=== PATIENT | female | born 1995 | race African-American/Black ===

== ENCOUNTER 2022-11-13 08:21 | Observation (INO) ==
[2022-11-13 08:37] VITALS: BMI 41.0
[2022-11-13 09:15] LABS: BASOPHILS % (AUTO) 0.3 % (0.2-1.0); EOSINOPHILS # (AUTO) 0.2 x10^3/uL (0.0-0.2); EOSINOPHILS % (AUTO) 2.6 % (0.9-2.9); HEMATOCRIT 41.4 % (36.0-47.0); LYMPHOCYTES # (AUTO) 1.8 X10^3/uL (1.3-2.9); LYMPHOCYTES % (AUTO) 22.4 % (21.0-51.0); MEAN CORPUSCULAR HEMOGLOBIN 29.6 pg (27.0-34.0); MEAN CORPUSCULAR HGB CONC 33.9 g/dL (33.0-35.0); MEAN CORPUSCULAR VOLUME 87.2 fL (80.0-100.0); MONOCYTES # (AUTO) 0.6 x10^3/uL (0.3-0.8); MONOCYTES % (AUTO) 7.4 % (0.0-13.0); NEUTROPHILS # (AUTO) 5.4 x10^3/uL (2.2-4.8); NEUTROPHILS % (AUTO) 67.3 % (42.0-75.0); RED BLOOD COUNT 4.75 X10^6/uL (3.5-5.4); WHITE BLOOD COUNT 8.1 X10^3/uL (3.6-10.0)
[2022-11-13 09:27] LABS: ALANINE AMINOTRANSFERASE 15 Units/L (12-78); ALBUMIN 3.5 g/dL (3.4-5.0); ALKALINE PHOSPHATASE 43 Units/L (46-116); ASPARTATE AMINO TRANSFERASE 16 Units/L (15-37); BLOOD UREA NITROGEN 12 mg/dL (7-18); CALCIUM 8.7 mg/dL (8.5-10.1); CARBON DIOXIDE 27.2 mmol/L (21-32); CHLORIDE 103 mmol/L (98-107); CREATININE 0.91 mg/dL (0.55-1.02); SODIUM 139 mmol/L (136-145); TOTAL PROTEIN 7.2 g/dL (6.4-8.2); eGFR NON BLACK RACES > 60 (>60)
--- NOTE | 2022-11-13 09:34 | DR.NAUSEAF ---
HPI Time Seen Time Seen by Provider: 11/13/22 08:50 Primary Care Physician Primary Care Physician: Cj HPI Comment HPI Comment: PATIENT IS 27YR OLD FEMALE IN ER WITH PERSISTENT NAUSEA SINCE SUNDAY. EVALUATEDBY PCP, DID LABS THAT WERE NORMAL. EVALUATED IN ER THIS PAST SUNDAY. CT ABDOMEN AND PELVIS AND LABS WERE NORMAL. HER SYMPTOMS ARE GETTING WO RSE. ZOFRAN NOT HELPING. HAVE LOW GRADE FEVER. Complaints Chief Complaint Doctors Comments: PERSISTENT NAUSEA TIMES 5 DAYS. Chief Complaint:: Nausea since Sunday, denies vomiting or fever. Seen Dr Cui in ED on Sunday and received protonix, zofran, toradol. She states the Zofran helps for about 10-15 minutes. Self Treatment fo Chief Complaint: Zofran, Toradol, Ibuprofen, Tramadol COVID-19 Coronavirus risk:travel/contact w/high risk person: No Has patient experienced Coronavirus symptoms: No Reviewed Nurses Notes Reviewed: Yes Source History Provided: Patient Mode of Arrival Mode of Arrival: Ambulatory Timing Onset of Chief Complaint: 11/07/22 PMH PMH Past Medical History: No Past Surgical History: No Surgical History: No History Family History History of Family Medical Conditions: Yes Family Medical History: Diabetes Mellitus, Cancer and Hypertension Social History Does patient currently use any type of tobacco product: No Have you used tobacco products in the last 12 months: No Type of Tobacco Use: None Does any household member use tobacco: No Alcohol Use: None Do you use any recreational Drugs:: No Lives With: Family Lives Where: Home Travel Risk Coronavirus risk:travel/contact w/high risk person: No Has patient experienced Coronavirus symptoms: No Infectious screening In the last 2 months have you had wt loss of >10#?: NO Have you had fever, night sweats or hemotysis?: No Have you traveled outside the country in the last 6 months?: No Isolation: Standard ROS Review of Systems Constitutional: No Symptoms Reported; negative Fever Eyes: No Symptoms Reported ENTM: No Symptoms Reported; negative Ear Pain, Nose Discharge, Nose Congestion or Throat Pain Respiratoy: No Symptoms Reported; negative Moist Cough, Short of Breath or Wheezing Cardiovascular: No Symptoms Reported; negative Chest Pain Gastrointestinal/Abdominal: Nausea; negative Abdominal Pain, Diarrhea or Vomiting Genitourinary: No Symptoms Reported; negative Dysuria Neurological: negative Headache, Weakness or Dizziness Musculoskeletal: Back Pain (LOWER BACK PAIN ); negative Muscle Pain Integumentary: No Symptoms Reported; negative Rash or Juandice Hematologic/Lymphatic: No Symptoms Reported; negative Easy Bruising or Swollen Glands Endocrine: No Symptoms Reported; negative Increased Thirst or Increased Urine Psychiatric: No Symptoms Reported and See HPI All Other Systems: Reviewed and Negative PE Vital Signs Vitals: Temperature 97.8 F Pulse Rate 104 Respiratory Rate 18 Blood Pressure [Left Arm] 124/74 Blood Pressure 116/65 O2 Sat by Pulse Oximetry 96 General Limitations: No Limitations General Appearance: Alert and In No Apparent Distress Head Head Exam: Normal Inspection and Atraumatic Eyes Eye exam: Normal Appearance and PERRL; negative Scleral Icterus or Conjunctival Injection ENT ENT Exam: Normal Exam, Normal Oropharynx, Normal External Ear Exam and TM's Normal Bilaterally Neck Neck Exam: Normal Inspection and Trachea Midline; negative Tenderness Chest Chest Inspection: Normal Inspection and Symmetric Chest Wall Rise; negative Tenderness Respiratory Respiratory Exam: Normal Lung Sounds Bilat; negative Accessory Muscle Use, Chest Wall Tenderness or Respiratory Distress Respiratory Exam: Bilateral: Clear to Auscultation Cardiovascular Cardiovascular Exam: Regular Rate, Normal Rhythm, Normal Heart Sounds, Systolic Murmur and Diastolic Murmur Abdominal Exam Abdominal Exam: Normal Inspection, Normal Bowel Sounds and Soft; negative Tenderness Rectal Rectal Exam: Deferred External Exam: Female: Deferred : Speculum Exam (Female): Deferred : Bimanual Exam (female): Deferred Extremities Extremities Exam: Normal Inspection and Normal Capillary Refill Back Back Exam: Normal Inspection; negative (R) CVA Tenderness or (L) CVA Tenderness Neurologic Neurological Exam: Alert and Oriented X3; negative Motor Sensory Deficit Psychiatric Psychiatric Exam: Normal Affect and Normal Mood Skin Skin Exam: Intact MDM Differential Diagnosis Differential Diagnosis: Considerations may Include:: Bowel Obstruction, Cholecystitis, Gastritis, Inflammatory BD, Pancreatitis, PUD, Urinary Tract Infection and Urolithiasis COURSE Treatment Treatment: SE ORDERS DONE WHILE PATIENT WAS IN ER. LABS DISCUSSED WITH PATIENT. SURGICAL CONSULT WITH DR. FELIPE. HE WILL TAKE PATIENT TO SURGERY FOR CHOLECYSTECTOMY. Consultation Consultation Comments: DISCUSSED PATIENT WITH DR. FELIPE. HE IS IN ER EVALUATING PATIENT AND WILL TAKE PATIENT TO SURGERY. Education/Counseling Education/Counseling: Patient Educated On: Diagnosis ROR Labs Reviewed Laboratory Results Reviewed?: Yes Result Diagrams: 11/14/22 05:13 11/14/22 05:13 Laboratory: WBC 8.1 X10^3/uL (3.6-10.0) 11/13/22 09:00 RBC 4.75 X10^6/uL (3.5-5.4) 11/13/22 09:00 Hgb 14.0 g/dL (12.0-16.0) 11/13/22 09:00 Hct 41.4 % (36.0-47.0) 11/13/22 09:00 MCV 87.2 fL (80.0-100.0) 11/13/22 09:00 MCH 29.6 pg (27.0-34.0) 11/13/22 09:00 MCHC 33.9 g/dL (33.0-35.0) 11/13/22 09:00 RDW 13.0 % (11.6-16.5) 11/13/22 09:00 Plt Count 255 X10^3/uL (150.0-450.0) 11/13/22 09:00 MPV 8.0 fL (7.4-11.0) 11/13/22 09:00 Neut % (Auto) 67.3 % (42.0-75.0) 11/13/22 09:00 Lymph % (Auto) 22.4 % (21.0-51.0) 11/13/22 09:00 [place] % (Auto) 7.4 % (0.0-13.0) 11/13/22 09:00 Eos % (Auto) 2.6 % (0.9-2.9) 11/13/22 09:00 Baso % (Auto) 0.3 % (0.2-1.0) 11/13/22 09:00 Neut # (Auto) 5.4 x10^3/uL (2.2-4.8) H 11/13/22 09:00 Lymph # (Auto) 1.8 X10^3/uL (1.3-2.9) 11/13/22 09:00 [place] # (Auto) 0.6 x10^3/uL (0.3-0.8) 11/13/22 09:00 Eos # (Auto) 0.2 x10^3/uL (0.0-0.2) 11/13/22 09:00 Baso # (Auto) 0.0 X10^3/uL (0.0-0.1) 11/13/22 09:00 Absolute Nucleated RBC 0.0 /100WBC 11/13/22 09:00 Sodium 139 mmol/L (136-145) 11/13/22 09:00 Corrected Sodium TNP 11/13/22 09:00 Potassium 3.9 mmol/L (3.5-5.1) 11/13/22 09:00 Chloride 103 mmol/L (98-107) 11/13/22 09:00 Carbon Dioxide 27.2 mmol/L (21-32) 11/13/22 09:00 BUN 12 mg/dL (7-18) 11/13/22 09:00 Creatinine 0.91 mg/dL (0.55-1.02) 11/13/22 09:00 Est GFR (MDRD) Af Amer > 60 (>60) 11/13/22 09:00 Est GFR (MDRD) Non-Af > 60 (>60) 11/13/22 09:00 Glucose 87 mg/dL (65-99) 11/13/22 09:00 Calcium 8.7 mg/dL (8.5-10.1) 11/13/22 09:00 Corrected Calcium TNP 11/13/22 09:00 Total Bilirubin 0.60 mg/dL (0.2-1.0) 11/13/22 09:00 AST 16 Units/L (15-37) 11/13/22 09:00 ALT 15 Units/L (12-78) 11/13/22 09:00 Alkaline Phosphatase 43 Units/L (46-116) L 11/13/22 09:00 Total Protein 7.2 g/dL (6.4-8.2) 11/13/22 09:00 Albumin 3.5 g/dL (3.4-5.0) 11/13/22 09:00 Globulin 3.7 g/dL (2.5-4.5) 11/13/22 09:00 Albumin/Globulin Ratio 0.9 Ratio (1.1-2.1) L 11/13/22 09:00 SARS-CoV-2 (PCR) Negative (NEGATIVE) 11/13/22 08:57 Influenza Type A (PCR) Negative (NEGATIVE) 11/13/22 08:57 Influenza Type B (PCR) Negative (NEGATIVE) 11/13/22 08:57 RSV (PCR) Negative (NEGATIVE) 11/13/22 08:57 Tissue Pathology To follow 11/13/22 14:19 XRAY XRAY Interpreted by: Radiologist (GB US REPORT NOTED.) Opioid Opioid Risk Tool Age (Juanjo box if 16-45): No History of Preadolescent Sexual Abuse: No Total: 0 Total Score Risk Category: Low Risk Copyright: Ammon PATTON predicting aberrant behaviors Discharge Plan Diagnosis Discharge Problem: Acute cholecystitis due to biliary calculus, Abdominal pain Discharge Plan Patient Disposition: 09 ADMITTED INPATIENT Condition: Stable Orders to Discharge Patient Discharge Orders: Discharge (Routine); Ordered 11/14/22 Ordered By: EUN FELIPE
--- NOTE | 2022-11-13 09:44 | US ---
HISTORYNauseaSTUDYGallbladder sonogramTechnique: Multiple grayscale sonographic images were obtained.COMPARISONNoneFINDINGSThe liver is normal in size and configuration and without cyst, mass, or biliary ductal dilatation. Portal blood flow was hepatopetal, hepatic venous blood flow, hepatofugal, hepatic artery, patent. Multiple gallstones are present within the gallbladder. Gallbladder wall thickness was normal. Common duct measured 2.1 mm. The head and body of the pancreas appear normal. The tail was obscured by overlying bowel gas. Right kidney measured 9.5 cm in length. No solid masses, hydronephrosis, stones, or perinephric fluid collections were identified.IMPRESSIONCholelithiasis without evidence for cholecystitisElectronically signed by: RAMIN DELEON (Nov 13, 2022 09:42:54)
[2022-11-13] MEDS ORDERED: D5 1/2 NS 1,000 ML 1,000 ML IV ONE (11:06)
[2022-11-13] MEDS ORDERED: ANCEF VIAL 1 GRAM ONE ×2 (11:06→13:03)
[2022-11-13] MEDS ORDERED: NS 100 ML IV 100 ML ONE ×2 (11:06→13:04)
[2022-11-13] MEDS ORDERED: ANCEF VIAL 1 GRAM IVP ONE (11:25)
[2022-11-13] MEDS ORDERED: D5 1/2 NS 1,000 ML 1,000 ML IV SCH (12:00)
[2022-11-13] MEDS ORDERED: FENTANYL VIAL INJ 100 mcg ONE ×2 (12:31→13:30)
[2022-11-13] MEDS ORDERED: VERSED ONE (12:31)
[2022-11-13] MEDS ORDERED: DIPRIVAN VIAL 20 ML ONE (12:32)
[2022-11-13] MEDS ORDERED: TORADOL 30 MG VIAL ONE (12:32)
[2022-11-13] MEDS ORDERED: XYLOCAINE 2 % (PLAIN) ONE (12:32)
[2022-11-13] MEDS ORDERED: ZOFRAN INJ 4 MG VIAL ONE (12:32)
[2022-11-13] MEDS ORDERED: BRIDION ONE (12:32)
[2022-11-13] MEDS ORDERED: ZEMURON 100 MG VIAL ONE (12:32)
[2022-11-13] MEDS ORDERED: OFIRMEV IV 1000 MG VIAL 1,000 MG/100 ML VIAL IV ONE (12:32)
[2022-11-13] MEDS ORDERED: REGLAN INJ 10 MG VIAL ONE (12:42)
[2022-11-13] MEDS ORDERED: PEPCID 20 MG VIAL ONE (12:43)
[2022-11-13] MEDS ORDERED: ZOFRAN INJ 4 MG VIAL IVP PRN ×2 (13:02→15:26)
[2022-11-13] MEDS ORDERED: BENADRYL INJ 50 MG VIAL IVP PRN (13:02)
[2022-11-13] MEDS ORDERED: BARHEMSYS INJ IVP PRN (13:02)
[2022-11-13] MEDS ORDERED: LR 1,000 ML IV 1,000 ML IV ONE (13:03)
[2022-11-13] MEDS ORDERED: BACTROBAN TOPICAL OINT ONE (13:03)
[2022-11-13] MEDS ORDERED: KETAMINE 50 MG/5 ML-NACL SYRNG ONE (13:17)
[2022-11-13] MEDS ORDERED: SUPRANE ONE (13:20)
[2022-11-13] MEDS ORDERED: BREVIBLOC ONE (13:36)
[2022-11-13] MEDS ORDERED: EPHEDRINE SULFATE INJ ONE (13:48)
[2022-11-13] MEDS ORDERED: DILAUDID INJ ONE (14:59)
[2022-11-13] MEDS: DILAUDID INJ IVP PRN ×6 (15:00→22:32)
[2022-11-13] MEDS: D5 1/2 NS 1,000 ML 1,000 ML IV SCH ×2 (17:02→23:30)
[2022-11-14] MEDS: DILAUDID INJ IVP PRN (03:33)
[2022-11-14] MEDS: D5 1/2 NS 1,000 ML 1,000 ML IV SCH ×2 (04:48→05:24)
[2022-11-14 05:39] LABS: BASOPHILS # (AUTO) 0.1 X10^3/uL (0.0-0.1); BASOPHILS % (AUTO) 0.6 % (0.2-1.0); EOSINOPHILS # (AUTO) 0.2 x10^3/uL (0.0-0.2); EOSINOPHILS % (AUTO) 1.8 % (0.9-2.9); HEMATOCRIT 36.2 % (36.0-47.0); HEMOGLOBIN 12.3 g/dL (12.0-16.0); LYMPHOCYTES % (AUTO) 19.5 % (21.0-51.0); MEAN CORPUSCULAR HEMOGLOBIN 29.9 pg (27.0-34.0); MEAN PLATELET VOLUME 8.2 fL (7.4-11.0); MONOCYTES # (AUTO) 0.7 x10^3/uL (0.3-0.8); MONOCYTES % (AUTO) 6.7 % (0.0-13.0); NEUTROPHILS # (AUTO) 7.2 x10^3/uL (2.2-4.8); NEUTROPHILS % (AUTO) 71.4 % (42.0-75.0); RED BLOOD COUNT 4.11 X10^6/uL (3.5-5.4); RED CELL DISTRIBUTION WIDTH 13.1 % (11.6-16.5); WHITE BLOOD COUNT 10.1 X10^3/uL (3.6-10.0)
[2022-11-14 05:49] LABS: ALANINE AMINOTRANSFERASE 23 Units/L (12-78); ALBUMIN 2.9 g/dL (3.4-5.0); ALKALINE PHOSPHATASE 38 Units/L (46-116); ASPARTATE AMINO TRANSFERASE 24 Units/L (15-37); BLOOD UREA NITROGEN 6 mg/dL (7-18); CALCIUM 7.8 mg/dL (8.5-10.1); CHLORIDE 103 mmol/L (98-107); COR CA(FOR HYPOALB) 8.7 mg/dL (8.5-10.1); CREATININE 0.68 mg/dL (0.55-1.02); SODIUM 137 mmol/L (136-145); TOTAL PROTEIN 6.1 g/dL (6.4-8.2); eGFR NON BLACK RACES > 60 (>60)
[2022-11-14] MEDS ORDERED: K-DUR TAB 20 MEQ PO PRN (07:05)
[2022-11-14 07:41] VITALS: BP 124/78
== END 2022-11-14 09:30 | disposition home or self-care (01) ==
LOC: ER 08:21 → MED/SURG 13:14 → SURG1 13:14 → MED/SURG 15:43
PROVIDERS: ADMIT Surgery; ATTEND Surgery
DX: R11.2 Nausea with vomiting, unspecified; R10.11 Right upper quadrant pain; Z20.822 Contact with and (suspected) exposure to COVID-19; K80.62 Calculus of gallbladder and bile duct with acute cholecystitis without obstruction